=== PATIENT | male | born 1965 ===

== ENCOUNTER 2021-11-24 01:54 | Emergency (ER) | payer SELFPAY ==
[2021-11-24 01:58] VITALS: BP 157/78; PULSE 84; RESP 16; TEMP 36.8; O2SAT 100
--- NOTE | 2021-11-24 03:10 | PC.NURSE ---
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
== END 2021-11-24 03:10 | disposition left against medical advice (07) ==
PROVIDERS: PCP Family Medicine Sports Medicine
DX: Z53.21 Procedure and treatment not carried out due to patient leaving prior to being seen by health care provider (principal)
CPT/HCPCS: 99199